=== PATIENT | male | born 1970 | race Caucasian/White ===

== ENCOUNTER 2024-05-29 12:46 | Inpatient (IN) ==
[2024-05-29] MEDS ORDERED: niCARdipine 0.1MG/ML IVPREMIX 20 MG/200 ML BAG IV ONE (13:04)
[2024-05-29] MEDS ORDERED: Heparin DRIP 25,000 UNITS BAG 0 UNITS/0 ML BAG IV ONE (13:04)
[2024-05-29] MEDS ORDERED: Lidocaine 1% MPF 5 ML VIAL ONE (13:04)
[2024-05-29] MEDS ORDERED: Iohexol 350 (CONTRAST) 200 ML MDV IV ONE (13:04)
[2024-05-29] MEDS ORDERED: Heparin 1,000 UNIT/ML 10 ml (10,000 UNITS) CATHLAB/DIALYSIS ONE (13:04)
[2024-05-29] MEDS ORDERED: fentaNYL 100 mcg/2 ml 50 MCG/ML VIAL ONE (13:04)
[2024-05-29] MEDS ORDERED: Heparin 2 UNITS/ML 1000 mls 2,000 ML IV ONE (13:04)
[2024-05-29] MEDS ORDERED: Midazolam 5 mg/5 ml VIAL 1 mg/ml 5 ml VIAL (5 mg) ONE (13:04)
[2024-05-29] MEDS ORDERED: nitroGLYCERIN DRIP 25,000 MCG/250 ML BTL ONE (13:04)
[2024-05-29] MEDS ORDERED: Heparin 5000 UNITS/ML 1 mL VIAL ONE (13:06)
[2024-05-29] MEDS: Heparin - STEMI 5,000 UNITS/ML 1 ml VIAL IV ONE (13:09)
[2024-05-29] MEDS ORDERED: Naloxone 0.4 mg VIAL 0.4 mg/ml 1 ml VIAL IV PUSH PRN (13:20)
[2024-05-29] MEDS ORDERED: Flumazenil 0.5 mg/5 ml 0.1 MG/ML 5 ml VIAL IV PRN (13:20)
[2024-05-29] MEDS ORDERED: Atropine 0.1 MG/ML 10 ml SYR (1 mg) ONE (13:46)
[2024-05-29] MEDS ORDERED: Norepinephrine 4 MG/250mL D5W 0 MCG/0 ML BAG IV ONE (13:47)
[2024-05-29] MEDS ORDERED: Eptifibatide IV (Load dose) 2 MG/ML 10 ml VIAL ONE ×2 (13:51)
[2024-05-29 14:14] LABS: ABS Eosinophils 0.1 10^3/uL (0.0-0.5); ABS Monocytes 0.5 10^3/uL (0.0-1.1); ABS Neutrophils 7.1 10^3/uL (1.5-7.6); Eosinophil % 0.7 %; Hematocrit 42.5 % (38-53); Hemoglobin 14.4 g/dL (13.2-16.3); Lymphocyte % 11.9 %; Mean Corpuscular Hemoglobin 29.3 pg (27-33); Mean Corpuscular Hgb Conc 33.9 g/dL (31-36); Mean Corpuscular Volume 86.4 fL (80-97); Mean Platelet Volume 8.1 fL (7.5-11.2); Nucleated Red Blood Cells % 0.1 %/100WBC (0.0-0.8); Platelet Count 299 10^3/uL (150-450); Red Blood Count 4.91 10^6/uL (4.06-5.63); Red Cell Distribution Width 13.2 % (12-17); White Blood Count 8.7 10^3/uL (3.6-10.2)
[2024-05-29] MEDS ORDERED: Prasugrel 10 mg TAB (NF) ONE (14:19)
[2024-05-29] MEDS ORDERED: Ondansetron 4 mg VIAL 2 MG/ML 2 ml VIAL IV PRN (14:28)
[2024-05-29] MEDS ORDERED: oxyCODONE/Acetamin 5/325 mg TAB PO PRN (14:28)
[2024-05-29 14:48] LABS: Albumin 4.5 g/dL (3.2-5.2); Albumin/Globulin Ratio 1.9 (1-3); Calcium 9.3 mg/dL (8.6-10.3); Creatinine, Serum 0.93 mg/dL (0.67-1.17); Globulin 2.4 g/dL (2-4); Magnesium 1.8 mg/dL (1.9-2.7); Total Bilirubin 0.4 mg/dL (0.2-1.0); Total Protein 6.9 g/dL (6.4-8.9); eGFR CKD-EPI 96.4 (>60)
[2024-05-29] MEDS: Magnesium Sulfate 2 gm BAG 2 GM/50 ML BAG IVPB ONE (17:00)
[2024-05-29] MEDS: fentaNYL 100 mcg/2 ml 50 MCG/ML VIAL IV SLOW PU ONE (17:18)
[2024-05-29] MEDS: Midazolam 10 mg/10 ml VIAL 1 mg/ml 10 ml VIAL (10 mg) IV SLOW PU ONE (17:18)
[2024-05-30 05:54] LABS: Albumin 3.8 g/dL (3.2-5.2); Albumin/Globulin Ratio 1.9 (1-3); Calcium 8.7 mg/dL (8.6-10.3); Creatinine, Serum 0.87 mg/dL (0.67-1.17); HDL Cholesterol 31.4 mg/dL; Potassium 4.4 mmol/L (3.5-5.0); Total Bilirubin 0.4 mg/dL (0.2-1.0); Total Protein 5.8 g/dL (6.4-8.9); eGFR CKD-EPI 101.3 (>60)
[2024-05-30 06:14] LABS: ABS Eosinophils 0.1 10^3/uL (0.0-0.5); ABS Lymphocytes 1.7 10^3/uL (1.0-4.8); ABS Monocytes 0.9 10^3/uL (0.0-1.1); ABS Neutrophils 6.7 10^3/uL (1.5-7.6); Eosinophil % 1.1 %; Hematocrit 37.1 % (38-53); Hemoglobin 12.8 g/dL (13.2-16.3); Lymphocyte % 18.2 %; Mean Corpuscular Hemoglobin 29.9 pg (27-33); Mean Corpuscular Hgb Conc 34.4 g/dL (31-36); Mean Corpuscular Volume 86.9 fL (80-97); Mean Platelet Volume 8.1 fL (7.5-11.2); Platelet Count 246 10^3/uL (150-450); Red Blood Count 4.27 10^6/uL (4.06-5.63); Red Cell Distribution Width 13.2 % (12-17); White Blood Count 9.4 10^3/uL (3.6-10.2)
[2024-05-30] MEDS: Prasugrel 10 mg TAB (NF) PO SCH (07:42)
[2024-05-30] MEDS ORDERED: Sulfur Hexaflouride MICROSPHR 25 MG VIAL ONE (08:35)
[2024-05-30] MEDS: Sulfur Hexaflouride MICROSPHR 25 MG VIAL IV ONE (09:36)
[2024-05-31 05:03] LABS: ABS Eosinophils 0.2 10^3/uL (0.0-0.5); ABS Lymphocytes 1.5 10^3/uL (1.0-4.8); ABS Neutrophils 6.9 10^3/uL (1.5-7.6); Hematocrit 41.2 % (38-53); Lymphocyte % 15.5 %; Mean Corpuscular Hemoglobin 29.7 pg (27-33); Mean Corpuscular Hgb Conc 34.1 g/dL (31-36); Mean Corpuscular Volume 87.2 fL (80-97); Mean Platelet Volume 7.7 fL (7.5-11.2); Nucleated Red Blood Cells % 0.1 %/100WBC (0.0-0.8); Platelet Count 252 10^3/uL (150-450); Red Blood Count 4.73 10^6/uL (4.06-5.63); Red Cell Distribution Width 13.3 % (12-17); White Blood Count 9.7 10^3/uL (3.6-10.2)
[2024-05-31 05:49] LABS: Albumin 4.1 g/dL (3.2-5.2); Albumin/Globulin Ratio 1.9 (1-3); Calcium 8.9 mg/dL (8.6-10.3); Creatinine, Serum 0.93 mg/dL (0.67-1.17); Globulin 2.2 g/dL (2-4); Potassium 4.4 mmol/L (3.5-5.0); Total Bilirubin 0.6 mg/dL (0.2-1.0); Total Protein 6.3 g/dL (6.4-8.9); eGFR CKD-EPI 96.4 (>60)
[2024-05-31 08:24] VITALS: BP 102/71
== END 2024-05-31 11:51 | disposition home or self-care (01) | DRG 322 ==
LOC: ED 12:46 → CHICATH 13:09 → ICU 13:28 → SUATTDRO 15:01 → ICU 15:01
PROVIDERS: ADMIT Emergency Medicine; ATTEND Internal Medicine